=== PATIENT | male | born 1965 | race Caucasian/White ===

== ENCOUNTER 2018-10-30 11:40 | Day surgery (SDC) | payer OTHER ==
[2018-10-30] MEDS: NEPAFENAC 0.1% 3 ML OPH OPER (13:03)
[2018-10-30] MEDS: PHENYLephrine 2.5% 15 ML OPH OPER (13:03)
[2018-10-30] MEDS: CYCLOPENTOLATE 1% 2 ML OPH OPER (13:03)
[2018-10-30] MEDS: TROPICAMIDE 1% 15 ML OPH OPER (13:03)
[2018-10-30] MEDS: MOXIFLOXACIN 0.5% 3 ML OPH OPER (13:03)
[2018-10-30] MEDS ORDERED: hydrALAzine 20 MG INJ IV (13:30)
[2018-10-30] MEDS ORDERED: LACTATED RINGER'S 1,000 ML IV (13:30)
[2018-10-30] MEDS ORDERED: ACETAMINOPHEN 325 MG TAB PO (13:30)
[2018-10-30] MEDS ORDERED: LABETALOL HCL 20MG INJ IV (13:30)
[2018-10-30] MEDS ORDERED: FENTAnyl 50 MCG/ML VIAL IV (13:30)
[2018-10-30] MEDS ORDERED: ALBUTEROL 0.083% (NEB) 2.5 MG/3 ML AMP HHN (13:30)
[2018-10-30] MEDS ORDERED: ACETAMINOPHEN 500 MG TAB PO (13:30)
[2018-10-30] MEDS ORDERED: OXYCODONE/ACETAMINOPHEN (5/325) TAB PO (13:30)
[2018-10-30] MEDS ORDERED: DIPHENHYDRAMINE 50 MG INJ IV (13:30)
[2018-10-30] MEDS ORDERED: ONDANSETRON 4 MG INJ IV (13:30)
[2018-10-30] MEDS ORDERED: EPINEPHrine 1 MG INJ (14:15)
[2018-10-30] MEDS ORDERED: FENTAnyl 50 MCG/ML VIAL (14:33)
[2018-10-30] MEDS ORDERED: MIDAZOLAM 1 MG/ML 2 ML INJ (14:33)
[2018-10-30] MEDS ORDERED: METOPROLOL 5 MG INJ (14:48)
[2018-10-30] MEDS: TRYPAN BLUE 0.5 ML SYG IO (15:19)
[2018-10-30] MEDS: LIDOCAINE 1% (MPF) 30 ML INJ (15:19)
[2018-10-30] MEDS: TETRACAINE 0.5% 4 ML OPH (15:19)
[2018-10-30] MEDS: TOBRAMYCIN/DEXAMETH 3.5 GM OPH OINT (15:20)
== END 2018-10-30 16:32 | disposition home or self-care (01) ==
LOC: SDS 11:40
DX: I10 Essential (primary) hypertension (principal); E78.1 Pure hyperglyceridemia
CPT/HCPCS: 66984

== ENCOUNTER 2018-12-06 06:53 | Day surgery (SDC) | payer OTHER ==
[2018-12-06] MEDS: NEPAFENAC 0.1% 3 ML OPH OPER (07:42)
[2018-12-06] MEDS: CYCLOPENTOLATE 1% 2 ML OPH OPER (07:42)
[2018-12-06] MEDS: PHENYLephrine 2.5% 15 ML OPH OPER (07:42)
[2018-12-06] MEDS: TROPICAMIDE 1% 15 ML OPH OPER (07:42)
[2018-12-06] MEDS: MOXIFLOXACIN 0.5% 3 ML OPH OPER (07:42)
[2018-12-06] MEDS ORDERED: TETRACAINE 0.5% 4 ML OPH (08:56)
[2018-12-06] MEDS ORDERED: EPINEPHrine 1 MG INJ (08:56)
[2018-12-06] MEDS: LIDOCAINE 1% (MPF) 10 ML INJ (08:56)
[2018-12-06] MEDS ORDERED: NA HYALURONATE/CHONDROITIN 0.5 ML SYG (08:56)
[2018-12-06] MEDS ORDERED: TOBRAMYCIN/DEXAMETH 2.5 ML OPH (08:56)
[2018-12-06] MEDS ORDERED: FENTAnyl 50 MCG/ML VIAL IV ×2 (09:00)
[2018-12-06] MEDS ORDERED: ACETAMINOPHEN 500 MG TAB PO (09:00)
[2018-12-06] MEDS ORDERED: ACETAMINOPHEN 325 MG TAB PO (09:00)
[2018-12-06] MEDS ORDERED: ALBUTEROL 0.083% (NEB) 2.5 MG/3 ML AMP HHN (09:00)
[2018-12-06] MEDS ORDERED: hydrALAzine 20 MG INJ IV (09:00)
[2018-12-06] MEDS ORDERED: ONDANSETRON 4 MG INJ IV (09:00)
[2018-12-06] MEDS ORDERED: LABETALOL HCL 20MG INJ IV (09:00)
[2018-12-06] MEDS ORDERED: DIPHENHYDRAMINE 50 MG INJ IV (09:00)
[2018-12-06] MEDS ORDERED: OXYCODONE/ACETAMINOPHEN (5/325) TAB PO (09:00)
[2018-12-06] MEDS ORDERED: FENTAnyl 50 MCG/ML VIAL (09:09)
[2018-12-06] MEDS ORDERED: MIDAZOLAM 1 MG/ML 2 ML INJ (09:09)
[2018-12-06] MEDS ORDERED: TIMOLOL 0.5% 5 ML OPH (09:40)
== END 2018-12-06 10:50 | disposition home or self-care (01) ==
LOC: SDS 06:53
DX: H25.11 Age-related nuclear cataract, right eye (principal); I10 Essential (primary) hypertension; R73.03 Prediabetes
CPT/HCPCS: 66984